=== PATIENT | male | born 1990 | race Caucasian/White ===

== ENCOUNTER 2019-08-31 04:02 | Emergency (ER) | payer MEDICARE, MEDICAID ==
[~2019-08-31] VITALS: Ht 177.8 cm; Wt 91.2 kg
[2019-08-31 04:38] LABS: BASO % 0.6 % (0.0-1.0); EOS % 0.8 % (0.0-3.0); HEMATOCRIT 41.9 % (42.0-52.0); HEMOGLOBIN 14.2 g/dl (13.5-17.5); LYMPH # 1.3 10^3/uL (1.5-5.0); LYMPH % 24.1 % (24.0-44.0); MEAN CORPUSCULAR HEMOGLOBIN 30.1 pg (27.0-33.0); MEAN CORPUSCULAR HGB CONC 33.9 g/dl (32.0-36.5); MONO # 0.8 10^3/uL (0.0-0.8); MONO % 14.9 % (0.0-5.0); NEUTROPHILS # 3.2 10^3/uL (1.5-8.5); NEUTROPHILS % 59.4 % (36.0-66.0); PLATELET COUNT, AUTOMATED 289 10^3/uL (150-450); RED BLOOD COUNT 4.71 10^6/uL (4.30-6.10); WHITE BLOOD COUNT 5.3 10^3/uL (4.0-10.0)
[2019-08-31] MEDS ORDERED: chlorproMAZINE INJ 50MG/2ML AMP (J3230) IM STA (04:39)
[2019-08-31] MEDS ORDERED: NS 1,000 ML IV ONE (04:45)
[2019-08-31 05:13] LABS: ACETAMINOPHEN LEVEL < 2.0 UG/ML (10.0-30.0); ALBUMIN 4.1 GM/DL (3.2-5.2); ALT/SGPT 29 U/L (12-78); AMPHETAMINES LEVEL URINE POSITIVE (NEGATIVE); BARBITURATES URINE NEGATIVE (NEGATIVE); BENZODIAZEPINES URINE NEGATIVE (NEGATIVE); BILIRUBIN,DIRECT 0.3 MG/DL (0.0-0.2); BILIRUBIN,TOTAL 0.9 MG/DL (0.2-1.0); BLOOD UREA NITROGEN 8 MG/DL (7-18); CANNABINOIDS URINE POSITIVE (NEGATIVE); CARBON DIOXIDE LEVEL 27 MEQ/L (21-32); CHLORIDE LEVEL 102 MEQ/L (98-107); COCAINE METABOLITE URINE POSITIVE (NEGATIVE); CPK CREATINE PHOSPHOKINASE 139 U/L (39-308); CREATININE FOR GFR 1.16 MG/DL (0.70-1.30); ETHYL ALCOHOL (ETHANOL) < 0.003 % (0.000-0.010); GLOMERULAR FILTRATION RATE > 60.0 (>60); GLUCOSE, FASTING 85 MG/DL (70-100); METHADONE URINE NEGATIVE (NEGATIVE); OPIATES URINE POSITIVE (NEGATIVE); PHENCYCLIDINE URINE NEGATIVE (NEGATIVE); POTASSIUM SERUM 3.6 MEQ/L (3.5-5.1); SALICYLATE LEVEL < 1.7 MG/DL (5.0-30.0); SODIUM LEVEL 140 MEQ/L (136-145); TOTAL PROTEIN 8.1 GM/DL (6.4-8.2)
--- NOTE | 2019-08-31 06:49 | REPVR ---
PROCEDURE INFORMATION: Exam: CT Head Without Contrast Exam date and time: 08/31/2019 6:02 AM Clinical history: 28 years old, male; Altered mental status/memory loss; Confusion or disorientation; Additional info: AMS TECHNIQUE: Imaging protocol: Computed tomography of the head without contrast. Radiation optimization: All CT scans at this facility use at least one of these dose optimization techniques: automated exposure control; mA and/or kV adjustment per patient size (includes targeted exams where dose is matched to clinical indication); or iterative reconstruction. COMPARISON: No relevant prior studies available. FINDINGS: Brain: The cortical/white matter interfaces are preserved throughout the brain. No parenchymal mass lesions are identified. There is no evidence of intracranial hemorrhage. Ventricles: The ventricular system is normal in size and configuration. Bones/joints: No acute fractures of the skull are identified. Sinuses: There is minimal mucoperiosteal thickening in the visualized paranasal sinuses. No fluid levels. Mastoid air cells: The visualized mastoid air cells are clear. Soft tissues: The soft tissues appear unremarkable. IMPRESSION: Normal appearance of the brain. Electronically signed by: Angelica Mcgraw On 08/31/2019 06:48:55 AM
[2019-08-31 11:55] VITALS: BP 128/71
--- NOTE | 2019-08-31 19:08 | ECGEPIP ---
[facility] - ED Test Date: 2019-08-31 Pat Name: KRISHAN GARDNER Department: Room: - Gender: Male Moveman: lyudmila : 1990 Requested By: YOLI ALBERTS Order Number: [id number] Reading MD: Darrel Sequeira Measurements Intervals [place] Rate: 112 P: 8 IA: 132 QRS: -5 QRSD: 106 T: 7 QT: 325 QTc: 444 Interpretive Statements SINUS TACHYCARDIA Comparison tracing not on file Electronically Signed on 08-31-2019 19:08:51 EDT by Darrel Sequeira
== END 2019-08-31 12:00 | disposition home or self-care (01) ==
LOC: M ED 04:02 → EDBD 04:02 → M ED 12:00
DX: F19.10 Other psychoactive substance abuse, uncomplicated (principal); R00.0 Tachycardia, unspecified
CPT/HCPCS: 36415; 70450; 80048; 80076; 80307; 82550; 84443; 85025; 93005; 93041; 94760; 96360; 96361; 96372; 99285; G0480; J3230

== ENCOUNTER 2019-09-15 15:42 | Emergency (ER) | payer MEDICARE, MEDICAID ==
[~2019-09-15] VITALS: Ht 162.6 cm; Wt 86.4 kg
[2019-09-15] MEDS ORDERED: NS 1,000 ML IV ONE ×2 (16:15→18:15)
[2019-09-15] MEDS ORDERED: ONDANSETRON 4MG/2ML VIAL (J2405) IV ONE (16:15)
[2019-09-15] MEDS ORDERED: NALOXONE INJ 2 MG/2 ML SYRINGE (J2310) As Ordered ONE (16:16)
[2019-09-15] MEDS ORDERED: NALOXONE INJ 0.4 MG/1 ML VIAL (J2310) IV STA (16:25)
[2019-09-15 17:00] LABS: BASO % 0.5 % (0.0-1.0); EOS % 0.1 % (0.0-3.0); HEMATOCRIT 37.7 % (42.0-52.0); HEMOGLOBIN 12.4 g/dl (13.5-17.5); LYMPH # 0.7 10^3/uL (1.5-5.0); LYMPH % 8.4 % (24.0-44.0); MEAN CORPUSCULAR HEMOGLOBIN 29.2 pg (27.0-33.0); MEAN CORPUSCULAR HGB CONC 32.9 g/dl (32.0-36.5); MEAN CORPUSCULAR VOLUME 88.9 fl (80.0-96.0); MONO # 0.7 10^3/uL (0.0-0.8); MONO % 8.5 % (0.0-5.0); NEUTROPHILS # 7.1 10^3/uL (1.5-8.5); PLATELET COUNT, AUTOMATED 337 10^3/uL (150-450); RED BLOOD COUNT 4.24 10^6/uL (4.30-6.10); WHITE BLOOD COUNT 8.7 10^3/uL (4.0-10.0)
[2019-09-15 17:44] LABS: ACETAMINOPHEN LEVEL < 2.0 UG/ML (10.0-30.0); ALBUMIN 3.8 GM/DL (3.2-5.2); ALT/SGPT 29 U/L (12-78); BILIRUBIN,DIRECT 0.1 MG/DL (0.0-0.2); BILIRUBIN,TOTAL 0.6 MG/DL (0.2-1.0); BLOOD UREA NITROGEN 6 MG/DL (7-18); CALCIUM LEVEL 8.8 MG/DL (8.5-10.1); CARBON DIOXIDE LEVEL 25 MEQ/L (21-32); CHLORIDE LEVEL 105 MEQ/L (98-107); CPK CREATINE PHOSPHOKINASE 246 U/L (39-308); CREATININE FOR GFR 0.66 MG/DL (0.70-1.30); ETHYL ALCOHOL (ETHANOL) < 0.003 % (0.000-0.010); GLOMERULAR FILTRATION RATE > 60.0 (>60); GLUCOSE, FASTING 121 MG/DL (70-100); POTASSIUM SERUM 3.7 MEQ/L (3.5-5.1); SALICYLATE LEVEL < 1.7 MG/DL (5.0-30.0); SODIUM LEVEL 138 MEQ/L (136-145); TOTAL PROTEIN 7.4 GM/DL (6.4-8.2)
--- NOTE | 2019-09-15 17:44 | REP ---
Clinical: Cough and shortness of breath . Comparison: None . Findings: The mediastinum and cardiac silhouette are stable and within normal limits for portable technique. The lung pal are clear without acute consolidation, effusion, or pneumothorax. Skeletal structures are intact. Impression: No acute cardiopulmonary process appreciated. Electronically Signed by Donny Greene MD 09/15/2019 05:35 P
[2019-09-15 18:16] LABS: INFLUENZA A AMPLIFICATION NEGATIVE (NEGATIVE); INFLUENZA B AMPLIFICATION NEGATIVE (NEGATIVE)
[2019-09-15 18:57] VITALS: BP 163/74
[2019-09-15 20:00] LABS: AMPHETAMINES LEVEL URINE POSITIVE (NEGATIVE); BARBITURATES URINE NEGATIVE (NEGATIVE); BENZODIAZEPINES URINE NEGATIVE (NEGATIVE); CANNABINOIDS URINE POSITIVE (NEGATIVE); COCAINE METABOLITE URINE NEGATIVE (NEGATIVE); METHADONE URINE NEGATIVE (NEGATIVE); OPIATES URINE NEGATIVE (NEGATIVE); PHENCYCLIDINE URINE NEGATIVE (NEGATIVE)
--- NOTE | 2019-09-15 20:42 | ECGEPIP ---
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
[2019-09-15] MEDS ORDERED: ACETAMINOPHEN 325 MG TAB PO ONE (21:45)
== END 2019-09-15 23:46 | disposition home or self-care (01) ==
LOC: M ED 15:42
DX: F19.10 Other psychoactive substance abuse, uncomplicated (principal); I49.9 Cardiac arrhythmia, unspecified; K21.9 Gastro-esophageal reflux disease without esophagitis; R51 Headache; Z98.84 Bariatric surgery status
CPT/HCPCS: 71045; 80048; 80076; 82550; 84443; 85025; 87502; 93005; 93041; 94760; 96374; 96375; 99285; G0480; J2310; J2405

== ENCOUNTER 2019-12-17 11:52 | Emergency (ER) | payer MEDICARE, MEDICAID ==
[~2019-12-17] VITALS: Ht 162.6 cm; Wt 86.7 kg
[2019-12-17] MEDS ORDERED: GABA-845 (12:41)
[2019-12-17] MEDS ORDERED: HYDR50TA70 (12:41)
[2019-12-17] MEDS ORDERED: PANT40TA3 (12:41)
[2019-12-17] MEDS ORDERED: BUPR75TA5 (12:41)
[2019-12-17] MEDS ORDERED: ESCI20TA (12:41)
[2019-12-17] MEDS ORDERED: D-101000 (12:41)
--- NOTE | 2019-12-17 13:38 | REP ---
PA and lateral chest: Comparison is the portable chest dated 09/15/2019. The lung pla are clear. The cardiac size is normal. The heidi, mediastinum, and skeletal structures are unremarkable. Impression: Negative PA and lateral chest. There is no interval change. Electronically Signed by Montana Acosta MD 12/17/2019 01:29 P
[2019-12-17 13:41] LABS: BASO % 0.9 % (0.0-1.0); EOS # 0.1 10^3/uL (0.0-0.5); EOS % 1.1 % (0.0-3.0); HEMATOCRIT 41.9 % (42.0-52.0); HEMOGLOBIN 13.4 g/dl (13.5-17.5); LYMPH # 1.1 10^3/uL (1.5-5.0); LYMPH % 24.4 % (24.0-44.0); MEAN CORPUSCULAR VOLUME 87.5 fl (80.0-96.0); MONO # 0.4 10^3/uL (0.0-0.8); MONO % 7.5 % (0.0-5.0); NEUTROPHILS # 3.1 10^3/uL (1.5-8.5); NEUTROPHILS % 65.9 % (36.0-66.0); PLATELET COUNT, AUTOMATED 415 10^3/uL (150-450); RED BLOOD COUNT 4.79 10^6/uL (4.30-6.10); WHITE BLOOD COUNT 4.6 10^3/uL (4.0-10.0)
[2019-12-17 14:01] LABS: ALBUMIN 3.9 GM/DL (3.2-5.2); BILIRUBIN,DIRECT 0.1 MG/DL (0.0-0.2); BILIRUBIN,TOTAL 0.4 MG/DL (0.2-1.0); TOTAL PROTEIN 7.2 GM/DL (6.4-8.2)
[2019-12-17 15:10] VITALS: BP 128/67
== END 2019-12-17 15:12 | disposition home or self-care (01) ==
LOC: M ED 11:52
DX: R25.8 Other abnormal involuntary movements (principal); F15.10 Other stimulant abuse, uncomplicated; R49.0 Dysphonia; J45.909 Unspecified asthma, uncomplicated; R51 Headache; Z98.84 Bariatric surgery status; Z79.899 Other long term (current) drug therapy

== ENCOUNTER 2020-01-14 04:13 | Emergency (ER) | payer MEDICARE, MEDICAID ==
[~2020-01-14] VITALS: Ht 162.6 cm; Wt 79.3 kg
[~2020-01-14 04:13] MED LIST: BUPR75TA5; D-101000; ESCI20TA; GABA-845; HYDR50TA70; PANT40TA3
[2020-01-14] MEDS ORDERED: SUCCINYLCHOLINE 100 MG/5 ML SYRINGE (J0330) ONE (04:14)
[2020-01-14] MEDS ORDERED: propofoL 200 MG/20 ML VIAL ONE (04:14)
[2020-01-14 04:33] LABS: HEMATOCRIT 39.4 % (42.0-52.0); HEMOGLOBIN 13.3 g/dl (13.5-17.5); MEAN CORPUSCULAR HEMOGLOBIN 28.1 pg (27.0-33.0); MEAN CORPUSCULAR HGB CONC 33.8 g/dl (32.0-36.5); MEAN CORPUSCULAR VOLUME 83.3 fl (80.0-96.0); PLATELET COUNT, AUTOMATED 301 10^3/uL (150-450); RED BLOOD COUNT 4.73 10^6/uL (4.30-6.10); WHITE BLOOD COUNT 7.9 10^3/uL (4.0-10.0)
[2020-01-14] MEDS ORDERED: NS 1,000 ML IV ONE (04:45)
[2020-01-14 05:13] LABS: ACETAMINOPHEN LEVEL < 2.0 UG/ML (10.0-30.0); ALBUMIN 3.7 GM/DL (3.2-5.2); ALT/SGPT 23 U/L (12-78); BILIRUBIN,DIRECT 0.2 MG/DL (0.0-0.2); BILIRUBIN,TOTAL 0.5 MG/DL (0.2-1.0); BLOOD UREA NITROGEN 8 MG/DL (7-18); CARBON DIOXIDE LEVEL 28 MEQ/L (21-32); CHLORIDE LEVEL 104 MEQ/L (98-107); CPK CREATINE PHOSPHOKINASE 360 U/L (39-308); CREATININE FOR GFR 0.99 MG/DL (0.70-1.30); ETHYL ALCOHOL (ETHANOL) < 0.003 % (0.000-0.010); GLOMERULAR FILTRATION RATE > 60.0 (>60); GLUCOSE, FASTING 86 MG/DL (70-100); POTASSIUM SERUM 3.5 MEQ/L (3.5-5.1); SALICYLATE LEVEL < 1.7 MG/DL (5.0-30.0); SODIUM LEVEL 140 MEQ/L (136-145); THYROID STIMULATING HORMONE 0.985 uIU/ML (0.358-3.740); TOTAL PROTEIN 7.2 GM/DL (6.4-8.2)
[2020-01-14 05:15] LABS: AMPHETAMINES LEVEL URINE NEGATIVE (NEGATIVE); BARBITURATES URINE NEGATIVE (NEGATIVE); BENZODIAZEPINES URINE NEGATIVE (NEGATIVE); CANNABINOIDS URINE NEGATIVE (NEGATIVE); COCAINE METABOLITE URINE NEGATIVE (NEGATIVE); METHADONE URINE NEGATIVE (NEGATIVE); OPIATES URINE NEGATIVE (NEGATIVE); PHENCYCLIDINE URINE NEGATIVE (NEGATIVE)
--- NOTE | 2020-01-14 08:15 | ECGEPIP ---
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
[2020-01-14] MEDS ORDERED: OLANZapine ORAL DISINTEGRATING TAB 5MG PO ONE (10:45)
[2020-01-14 13:05] VITALS: BP 127/63
== END 2020-01-14 13:23 | disposition home or self-care (01) ==
LOC: M ED 04:13
DX: F15.120 Other stimulant abuse with intoxication, uncomplicated (principal); F16.10 Hallucinogen abuse, uncomplicated; R45.851 Suicidal ideations; Z81.8 Family history of other mental and behavioral disorders; F81.9 Developmental disorder of scholastic skills, unspecified; N50.819 Testicular pain, unspecified
CPT/HCPCS: 80048; 80076; 80307; 82550; 84443; 85027; 93005; 96360; 99284; G0480; J0330

== ENCOUNTER 2020-05-23 12:37 | Emergency (ER) | payer MEDICARE, MEDICAID ==
[~2020-05-23] VITALS: Ht 160 cm; Wt 68.2 kg
[~2020-05-23 12:37] MED LIST changes: -D-101000; +D-101000 PO; -ESCI20TA; +ESCI20TA PO; -GABA-845; +GABA-845 PO; -HYDR50TA70; +HYDR50TA70 PO; +PANT40TA29 PO; -PANT40TA3
--- NOTE | 2020-05-23 13:14 | REP ---
Clinical: Trauma. Technique: AP, lateral, bilateral oblique views of the right and left wrist. Findings: Left wrist appears intact without acute fracture or dislocation. No subcutaneous emphysema. No foreign body. Right wrist appears intact without acute fracture or dislocation. No subcutaneous emphysema. No foreign body. Impression: No acute fracture or dislocation. Electronically Signed by Donny Greene MD 05/23/2020 01:05 P
--- NOTE | 2020-05-23 13:15 | REP ---
Clinical: Trauma. Technique: AP, lateral, bilateral oblique views of the right and left ankle. Findings: Right ankle intact without acute fracture or dislocation. Joint spaces and ankle mortise are normal. No subcutaneous emphysema or foreign body. Left ankle intact without acute fracture or dislocation. Joint spaces and ankle mortise are normal. No subcutaneous emphysema or foreign body. Impression: No acute fracture or dislocation. Electronically Signed by Donny Greene MD 05/23/2020 01:06 P
--- NOTE | 2020-05-23 13:16 | REP ---
Clinical: Trauma. Technique: Internal rotation, external rotation, and Y view right shoulder . Findings: No acute fracture or dislocation. The acromioclavicular and glenohumeral joints are intact. No periarticular calcifications or degenerative changes are appreciated. Sub acromial space is normal. Surrounding soft tissues are unremarkable. Impression: Normal right shoulder radiographs. Electronically Signed by Donny Greene MD 05/23/2020 01:07 P
[2020-05-23] MEDS ORDERED: CLON0.5T2 PO (13:28)
[2020-05-23 13:34] LABS: HEMATOCRIT 41.1 % (42.0-52.0); HEMOGLOBIN 13.3 g/dl (13.5-17.5); MEAN CORPUSCULAR HEMOGLOBIN 27.8 pg (27.0-33.0); MEAN CORPUSCULAR HGB CONC 32.4 g/dl (32.0-36.5); MEAN CORPUSCULAR VOLUME 85.8 fl (80.0-96.0); PLATELET COUNT, AUTOMATED 341 10^3/uL (150-450); RED BLOOD COUNT 4.79 10^6/uL (4.30-6.10); WHITE BLOOD COUNT 6.3 10^3/uL (4.0-10.0)
[2020-05-23 13:54] LABS: AMPHETAMINES LEVEL URINE NEGATIVE (NEGATIVE); BARBITURATES URINE NEGATIVE (NEGATIVE); BENZODIAZEPINES URINE NEGATIVE (NEGATIVE); CANNABINOIDS URINE NEGATIVE (NEGATIVE); COCAINE METABOLITE URINE NEGATIVE (NEGATIVE); METHADONE URINE NEGATIVE (NEGATIVE); OPIATES URINE NEGATIVE (NEGATIVE); PHENCYCLIDINE URINE NEGATIVE (NEGATIVE)
[2020-05-23 14:02] LABS: ACETAMINOPHEN LEVEL < 2.0 UG/ML (10.0-30.0); ALBUMIN 3.8 GM/DL (3.2-5.2); ALT/SGPT 33 U/L (12-78); BILIRUBIN,DIRECT 0.3 MG/DL (0.0-0.2); BILIRUBIN,TOTAL 0.7 MG/DL (0.2-1.0); BLOOD UREA NITROGEN 7 MG/DL (7-18); CALCIUM LEVEL 8.5 MG/DL (8.5-10.1); CARBON DIOXIDE LEVEL 27 MEQ/L (21-32); CHLORIDE LEVEL 105 MEQ/L (98-107); CREATININE FOR GFR 0.99 MG/DL (0.70-1.30); ETHYL ALCOHOL (ETHANOL) < 0.003 % (0.000-0.010); GLOMERULAR FILTRATION RATE > 60.0 (>60); GLUCOSE, FASTING 131 MG/DL (70-100); POTASSIUM SERUM 3.5 MEQ/L (3.5-5.1); SALICYLATE LEVEL < 1.7 MG/DL (5.0-30.0); SODIUM LEVEL 140 MEQ/L (136-145); TOTAL PROTEIN 7.4 GM/DL (6.4-8.2)
[2020-05-23 14:58] VITALS: BP 131/65
== END 2020-05-23 15:01 | disposition home or self-care (01) ==
LOC: M ED 12:37
DX: F15.10 Other stimulant abuse, uncomplicated (principal); Z79.899 Other long term (current) drug therapy
CPT/HCPCS: 36415; 73030; 73110; 73610; 80048; 80076; 80307; 84443; 85027; 99284; G0480

== ENCOUNTER 2020-05-27 10:35 | Inpatient (IN) | payer MEDICARE, MEDICAID ==
[~2020-05-27] VITALS: Ht 162.6 cm; Wt 80.7 kg
[~2020-05-27 10:35] MED LIST changes: +CLON0.5T2 PO; -PANT40TA29 PO; +PANT40TA3 PO
[2020-05-27 11:44] LABS: HEMATOCRIT 46.8 % (42.0-52.0); HEMOGLOBIN 14.7 g/dl (13.5-17.5); MEAN CORPUSCULAR HEMOGLOBIN 27.8 pg (27.0-33.0); MEAN CORPUSCULAR HGB CONC 31.4 g/dl (32.0-36.5); MEAN CORPUSCULAR VOLUME 88.5 fl (80.0-96.0); PLATELET COUNT, AUTOMATED 362 10^3/uL (150-450); RED BLOOD COUNT 5.29 10^6/uL (4.30-6.10); WHITE BLOOD COUNT 4.3 10^3/uL (4.0-10.0)
[2020-05-27 12:24] LABS: ACETAMINOPHEN LEVEL < 2.0 UG/ML (10.0-30.0); ALBUMIN 3.7 GM/DL (3.2-5.2); ALT/SGPT 27 U/L (12-78); BILIRUBIN,DIRECT < 0.1 MG/DL (0.0-0.2); BILIRUBIN,TOTAL 0.2 MG/DL (0.2-1.0); BLOOD UREA NITROGEN 10 MG/DL (7-18); CALCIUM LEVEL 8.9 MG/DL (8.5-10.1); CARBON DIOXIDE LEVEL 31 MEQ/L (21-32); CHLORIDE LEVEL 105 MEQ/L (98-107); ETHYL ALCOHOL (ETHANOL) < 0.003 % (0.000-0.010); GLOMERULAR FILTRATION RATE > 60.0 (>60); GLUCOSE, FASTING 77 MG/DL (70-100); POTASSIUM SERUM 4.6 MEQ/L (3.5-5.1); SALICYLATE LEVEL < 1.7 MG/DL (5.0-30.0); SODIUM LEVEL 140 MEQ/L (136-145); THYROID STIMULATING HORMONE 0.666 uIU/ML (0.358-3.740); TOTAL PROTEIN 7.5 GM/DL (6.4-8.2)
[2020-05-27 13:37] LABS: AMPHETAMINES LEVEL URINE NEGATIVE (NEGATIVE); BARBITURATES URINE NEGATIVE (NEGATIVE); BENZODIAZEPINES URINE NEGATIVE (NEGATIVE); CANNABINOIDS URINE NEGATIVE (NEGATIVE); COCAINE METABOLITE URINE NEGATIVE (NEGATIVE); METHADONE URINE NEGATIVE (NEGATIVE); OPIATES URINE NEGATIVE (NEGATIVE); PHENCYCLIDINE URINE NEGATIVE (NEGATIVE)
[2020-05-27] MEDS ORDERED: MOM 30ML SUSPENSION UDC PO PRN (14:00)
[2020-05-27] MEDS ORDERED: IBUPROFEN 400 MG TAB PO PRN (14:00)
[2020-05-27] MEDS ORDERED: BUPR150T3 PO (14:43)
[2020-05-27 15:45] VITALS: BP 98/54
[2020-05-28 07:20] VITALS: BP 124/58
[2020-05-28] MEDS: ACETAMINOPHEN TAB 650MG DOSE (2X325MG) PO PRN ×2 (10:36→17:33)
[2020-05-28 16:44] VITALS: BP 134/70
[2020-05-28] MEDS: buPROPion **XL** TABLET 150MG (WELLBUTRIN XL) PO SCH (17:34)
[2020-05-28] MEDS: OLANZapine 5 MG TAB PO PRN (17:37)
[2020-05-29 06:17] VITALS: BP 125/58
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
[2020-05-29] MEDS: buPROPion **XL** TABLET 150MG (WELLBUTRIN XL) PO SCH (09:17)
--- NOTE | 2020-05-29 11:15 | MHHPEPDOC ---
[facility] History & Physical History and Physical DATE OF ADMISSION: May 27, 2020 at 14:00 LEGAL STATUS AT ADMISSION: . CHIEF COMPLAINT: . HISTORY OF PRESENT ILLNESS: Patient is a 29-year-old male, who PSYCHIATRIC REVIEW OF SYSTEMS: Affective: . Anxiety: . Trauma: . Psychosis: . Personality: . PAST PSYCHIATRIC HISTORY: Prior Psychiatric Disorder: . Outpatient Treatment: . Suicidal/Self injurious: [Denies]. Psychotropic Medication History: . ALLERGIES: Please see below. FAMILY PSYCHIATRIC HISTORY: [Denies]. SOCIAL HISTORY: Early Relations/development: . Sibling order: . Paternal relationships: . Education: . Occupational: . Legal: . Marital: . Economic: . Supports: . Abuse/trauma: . SUBSTANCE ABUSE HISTORY: . PAST MEDICAL/SURGICAL HISTORY: [None]. VITAL SIGNS: Please see below. MENTAL STATUS EXAMINATION: General appearance: Patient is a -year old male, who is . Speech: . Thought processes: . Thought content: . Abstract reasoning and computation: . Description of associations: . Description of abnormal or psychotic thoughts: . Judgment: . Insight: . Orientation: . Recent and remote memory: . Attention span and concentration: . Fund of knowledge: . Mood: "." Affect: . DIAGNOSES: 1. . 2. . 3. . ASSESSMENT: PROBLEM LIST: 1. . 2. . 3. . INITIAL TREATMENT PLAN: 1. Patient was admitted on a . 2. Complete history was obtained. 3. With patients permission, family will be contacted and database will be expanded. 4. Patients medication regimen will be reviewed and changed accordingly. 5. Patient will be provided with protected environment. 6. Patient will be treated with individual, group, and milieu therapies. 7. Patient will receive supportive psych-education. 8. Discharge planning will commence immediately. 9. Outpatient follow-up treatment will be strongly recommended. 10. The initial treatment plan will focus initially on: * Depression. * Risk for suicide. * Substance abuse. ESTIMATED LENGTH OF STAY: - DAYS. TIME SPENT COUNSELING AND COORDINATING INITIAL CARE: minutes. Vital Signs Vital Signs Date Time Temp Pulse Resp B/P (MAP) Pulse Ox O2 Delivery O2 Flow Rate FiO2 05/29/20 08:01 Room Air 05/29/20 06:17 97.0 59 12 125/58 (80) 05/28/20 07:20 98 Medications Scheduled Bupropion Hcl (Bupropion Xl) 150 Mg Tab.er.24h, 150 MG PO DAILY, (Reported) Cholecalciferol (Vitamin D3) (Vitamin D3) 25 Mcg Capsule, 25 MCG PO DAILY, (Reported) Clonazepam (Clonazepam) 0.5 Mg Tablet, 0.5 MG PO BID, (Reported) Escitalopram Oxalate (Escitalopram Oxalate) 20 Mg Tablet, 20 MG PO DAILY, (Reported) Gabapentin (Gabapentin) 400 Mg Capsule, 400 MG PO TID, (Reported) Pantoprazole Sodium (Pantoprazole Sodium) 40 Mg Tablet.dr, 40 MG PO BID, (Reported) Scheduled PRN Hydroxyzine HCl (Hydroxyzine HCl) 50 Mg Tablet, 50 MG PO Q4H PRN for ANXIETY/AGITATION, (Reported) Allergies Coded Allergies: No Known Allergies (Unverified , 08/31/19) WILMER ESTRADA DO May 29, 2020 11:15
--- NOTE | 2020-05-29 11:16 | MHIPNPDOC ---
[facility] Progress Note Progress Note DATE OF SERVICE: 05/29/20 HPI: Martin presents today for a follow-up visit. Martin mentions he used to have thoughts of harming himself as he used to take Ana contaminated with bath salts and methamphetamine, which blocked his emotions and feelings while he was on it, and then he felt the rebound of its effects after he stopped taking it. Martin states he is in an addiction treatment and is thinking about going to rehab. He also mentions he doesnt like being locked up either. MEDICATIONS: He mentions he has taken Wellbutrin for a while. Objective Appearance: Fair hygiene. Behavior: engaged Mood: No evidence of psychotic thought process. Denies any suicidal or homicidal ideation. Does appear to be making some progress. Speech: Normal rate. Normal volume. Thought Form: Linear and goal directed. Insight: Poor to fair. Assessment F33.9 Major depressive disorder, recurrent, unspecified F15.20 Other stimulant dependence, uncomplicated F16.20 Hallucinogen dependence, uncomplicated Plan Increase Wellbutrin to 300 mg Discussed with patient risks of Wellbutrin use and substance use as well as residential programs and other strategies for continuing sober as likely a major problem. Treatment plan: His current treatment priorities are 1. Risk for suicide and 2. Substances. Vital Signs Vital Signs Date Time Temp Pulse Resp B/P (MAP) Pulse Ox O2 Delivery O2 Flow Rate FiO2 05/29/20 08:01 Room Air 05/29/20 06:17 97.0 59 12 125/58 (80) 05/28/20 07:20 98 Current Medications Current Medications Medications (Trade) Dose Ordered Sig/Joan Route PRN Reason Start Time Stop Time Status Last Admin Dose Admin Acetaminophen (Tylenol Tab) 650 mg Q6HP PRN PO HEADACHE or DISCOMFORT 05/27/20 14:00 05/28/20 17:33 Bupropion HCl (Wellbutrin Xl) 150 mg DAILY PO 05/28/20 09:00 05/29/20 09:17 Home Med (Med Rec Complete!) ASDIRECTED XX 05/27/20 14:45 05/27/20 14:55 DC Ibuprofen (Advil) 400 mg Q6HP PRN PO PAIN 05/27/20 14:00 Magnesium Hydroxide (Milk Of Magnesia) 30 ml DAILYPRN PRN PO CONSTIPATION 05/27/20 14:00 Olanzapine (ZyPREXA) 5 mg Q4HP PRN PO AGITATION 05/27/20 14:00 05/28/20 17:37 Allergies Coded Allergies: No Known Allergies (Unverified , 08/31/19) WILMER ESTRADA DO May 29, 2020 11:16
[2020-05-29 16:34] VITALS: BP 121/58
[2020-05-30 06:29] VITALS: BP 128/60
[2020-05-30] MEDS ORDERED: buPROPion **XL** TABLET 150MG (WELLBUTRIN XL) PO SCH (09:00)
--- NOTE | 2020-05-30 12:42 | MHIPNPDOC ---
[facility] Progress Note Progress Note DATE OF SERVICE: 05/30/20 HISTORY: . VITAL SIGNS: See below. NEW TEST RESULTS: . CURRENT MEDICATIONS: See below. MENTAL STATUS EXAMINATION: Patient is a -year old male, who is . Speech: Is . Language skills are . Thought processes including: . Thought content: . Abstract reasoning, and computation: . Description of associ ations: . Description of abnormal or psychotic thoughts: . Judgment: . Insight: [very limited, good, fair. poor]. Orientation: . Recent and remote memory: . Attention span and concentration: . Language: . Fund of knowledge: . Mood: . Affect: . DIAGNOSES: 1. . 2. . 3. . ASSESSMENT: MANAGEMENT PLAN: . TIME SPENT: minutes. Vital Signs Vital Signs Date Time Temp Pulse Resp B/P (MAP) Pulse Ox O2 Delivery O2 Flow Rate FiO2 05/30/20 07:51 Room Air 05/30/20 06:29 96.5 63 12 128/60 (82) 05/28/20 07:20 98 Current Medications Current Medications Medications (Trade) Dose Ordered Sig/Joan Route PRN Reason Start Time Stop Time Status Last Admin Dose Admin Acetaminophen (Tylenol Tab) 650 mg Q6HP PRN PO HEADACHE or DISCOMFORT 05/27/20 14:00 05/28/20 17:33 Bupropion HCl (Wellbutrin Xl) 150 mg DAILY PO 05/28/20 09:00 05/29/20 11:26 DC 05/29/20 09:17 Bupropion HCl (Wellbutrin Xl) 300 mg DAILY PO 05/30/20 09:00 05/30/20 09:23 Home Med (Med Rec Complete!) ASDIRECTED XX 05/27/20 14:45 05/27/20 14:55 DC Ibuprofen (Advil) 400 mg Q6HP PRN PO PAIN 05/27/20 14:00 Magnesium Hydroxide (Milk Of Magnesia) 30 ml DAILYPRN PRN PO CONSTIPATION 05/27/20 14:00 Olanzapine (ZyPREXA) 5 mg Q4HP PRN PO AGITATION 05/27/20 14:00 05/28/20 17:37 Allergies Coded Allergies: No Known Allergies (Unverified , 08/31/19) WILMER ESTRADA DO May 30, 2020 12:42
--- NOTE | 2020-05-30 14:51 | MHDSPDOC ---
[facility] Discharge Summary Discharge Summary DATE OF ADMISSION: May 27, 2020 at 14:00 DATE OF DISCHARGE: May 30, 2020 at 16:50 DISCHARGE DIAGNOSES: Unspecified depressive disorder poly substance use disorder REASON FOR ADMISSION: 29-year-old man admitted for depression after recent relapse on substances CONSULTANTS INVOLVED:[ None (basic hospitalist screening)] TREATMENT AND PROGRESS ON THE UNIT : Medication changes: start on Wellbutrin 150 mg extended release increase to 300 mg with positive effects depression, resolving precipitously Behavior on unit: friendly and amenable Treatment attendance: attended more as improved Notable issues on presentation: none State on discharge: [improved] DISCHARGE ASSESSMENT: The patient a 29 year old man, with likely substance related depression, presented to [facility], where they treated with appropriate agent and supportive treatment. Legal status considerations: The patient at the time of discharge did not meet criteria for involuntary admission/extension due to having a [normal] mental status exam, [fair] insight into the situation, They are engaged in the discharge process, as well as being friendly and amenable in behavioral control and havent been engaging in any observed concerning behavior or ideation recently. They decline voluntary extension/admission at this time and must be discharged in good rebekah, as Im unable to make a case for holding the patient against their will. They may have historical risk factors of admissions and other interactions with psychiatry however, those are not modifiable from a clinical perspective. The patient will need to be discharged in good rebekah. MENTAL STATUS EXAMINATION ON DISCHARGE: [General: Well dressed with good hygiene Speech: Spontaneous and fluid Thought processes: Linear and logical Thought content: Future orientated Abstract reasoning, and computation: Intact Description of associations: Intact Description of abnormal or psychotic thoughts:Denies any suicidal or homicidal ideation. Denies any auditory or visual hallucinations. Does not appear to be responding to internal stimuli. Does not appear to be endorsing any bizarre or paranoid ideation. Judgment: fair Insight: fair Orientation: Alert and orientated 3 Recent and remote memory: Intact Attention span and concentration: Intact Fund of knowledge: Adequate Mood: "okay" Affect: Euthymic with a full range] PLAN/FOLLOWUP ARRANGEMENTS: Follow up appointments made (PCP and MH in 5 days of D/C date) and safety plan completed. Safety Planning aspects completed prior to discharge [Medication supplies limited to 7 days with 4 refills to prevent accumulation to OD] [Family contact completed, educated on safe practices, instructed on removal and mitigation of dangerous means] [RN reviewed crisis hotline information and other aspects to empower patient to access care in interim before next appointment.] The amount of time spent in the coordination of care for this patient was approximately 30 minutes. Vital Signs/I&Os Vital Signs Date Time Temp Pulse Resp B/P (MAP) Pulse Ox O2 Delivery O2 Flow Rate FiO2 05/30/20 07:51 Room Air 05/30/20 06:29 96.5 63 12 128/60 (82) 05/28/20 07:20 98 Medications Scheduled Bupropion HCl (Wellbutrin Xl) 300 Mg Tab.er.24h, 1 TAB PO QAM for mood for 7 Days, #14 Bupropion Hcl (Bupropion Xl) 150 Mg Tab.er.24h, 150 MG PO DAILY, (Reported) Cholecalciferol (Vitamin D3) (Vitamin D3) 25 Mcg Capsule, 25 MCG PO DAILY, (Reported) Gabapentin (Gabapentin) 400 Mg Capsule, 400 MG PO TID, (Reported) Pantoprazole Sodium (Pantoprazole Sodium) 40 Mg Tablet.dr, 40 MG PO BID, (Reported) Scheduled PRN Hydroxyzine HCl (Hydroxyzine HCl) 50 Mg Tablet, 50 MG PO Q4H PRN for ANXIETY/AGITATION, (Reported) Allergies Coded Allergies: No Known Allergies (Unverified , 08/31/19) WILMER ESTRADA DO May 30, 2020 14:51
[2020-05-30] MEDS ORDERED: WELLTAB40 PO (14:52)
[2020-05-30] MEDS: ACETAMINOPHEN TAB 650MG DOSE (2X325MG) PO PRN (15:28)
[2020-05-30] MEDS: OLANZapine 5 MG TAB PO PRN (15:29)
[2020-05-30 16:37] VITALS: BP 135/90
== END 2020-05-30 16:50 | disposition home or self-care (01) | DRG 885 ==
LOC: M ED 10:35 → M ED INP 14:00 → M PSY 15:54
PROVIDERS: ADMIT Psychiatry & Neurology Addiction Medicine; ATTEND Psychiatry & Neurology Addiction Medicine
DX: F33.9 Major depressive disorder, recurrent, unspecified (principal); F15.20 Other stimulant dependence, uncomplicated; F16.20 Hallucinogen dependence, uncomplicated; F41.1 Generalized anxiety disorder; J45.909 Unspecified asthma, uncomplicated; F81.9 Developmental disorder of scholastic skills, unspecified; Z98.84 Bariatric surgery status; Z90.49 Acquired absence of other specified parts of digestive tract; Z79.899 Other long term (current) drug therapy; K21.9 Gastro-esophageal reflux disease without esophagitis

== ENCOUNTER 2021-01-30 13:14 | Emergency (ER) | payer MEDICARE, MEDICAID ==
[~2021-01-30] VITALS: Ht 162.6 cm; Wt 74.5 kg
[~2021-01-30 13:14] MED LIST changes: +BUPR150T12 PO; -ESCI20TA PO; +ESCI20TA16 PO; +PANT40TA29 PO; -PANT40TA3 PO; +WELLTAB40 PO
[2021-01-30] MEDS ORDERED: NS 1,000 ML IV ONE (13:25)
[2021-01-30 13:55] LABS: BASO % 0.4 % (0.0-1.0); EOS % 0.1 % (0.0-3.0); HEMATOCRIT 37.3 % (42.0-52.0); HEMOGLOBIN 12.1 g/dl (13.5-17.5); LYMPH # 0.9 10^3/uL (1.5-5.0); LYMPH % 13.2 % (24.0-44.0); MEAN CORPUSCULAR HEMOGLOBIN 27.7 pg (27.0-33.0); MEAN CORPUSCULAR HGB CONC 32.4 g/dl (32.0-36.5); MEAN CORPUSCULAR VOLUME 85.4 fl (80.0-96.0); MONO # 0.5 10^3/uL (0.0-0.8); MONO % 7.3 % (2.0-8.0); NEUTROPHILS # 5.4 10^3/uL (1.5-8.5); NEUTROPHILS % 78.9 % (36.0-66.0); PLATELET COUNT, AUTOMATED 303 10^3/uL (150-450); RED BLOOD COUNT 4.37 10^6/uL (4.30-6.10); WHITE BLOOD COUNT 6.9 10^3/uL (4.0-10.0)
[2021-01-30 16:16] LABS: ACETAMINOPHEN LEVEL < 2.0 UG/ML (10.0-30.0); ALBUMIN 3.6 GM/DL (3.2-5.2); ALT/SGPT 41 U/L (12-78); BILIRUBIN,DIRECT 0.2 MG/DL (0.0-0.2); BILIRUBIN,TOTAL 0.5 MG/DL (0.2-1.0); BLOOD UREA NITROGEN 7 MG/DL (7-18); CALCIUM LEVEL 8.1 MG/DL (8.5-10.1); CARBON DIOXIDE LEVEL 28 MEQ/L (21-32); CHLORIDE LEVEL 109 MEQ/L (98-107); CPK CREATINE PHOSPHOKINASE 191 U/L (39-308); CREATININE FOR GFR 0.86 MG/DL (0.70-1.30); ETHYL ALCOHOL (ETHANOL) < 0.003 % (0.000-0.010); GLOMERULAR FILTRATION RATE > 60.0 (>60); GLUCOSE, FASTING 73 MG/DL (70-100); POTASSIUM SERUM 3.8 MEQ/L (3.5-5.1); SALICYLATE LEVEL < 1.7 MG/DL (5.0-30.0); SODIUM LEVEL 142 MEQ/L (136-145); TOTAL PROTEIN 7.1 GM/DL (6.4-8.2)
[2021-01-30 17:45] VITALS: BP 111/64
[2021-01-30 18:07] LABS: AMPHETAMINES LEVEL URINE POSITIVE (NEGATIVE); BARBITURATES URINE NEGATIVE (NEGATIVE); BENZODIAZEPINES URINE NEGATIVE (NEGATIVE); CANNABINOIDS URINE NEGATIVE (NEGATIVE); COCAINE METABOLITE URINE NEGATIVE (NEGATIVE); METHADONE URINE NEGATIVE (NEGATIVE); OPIATES URINE POSITIVE (NEGATIVE); PHENCYCLIDINE URINE NEGATIVE (NEGATIVE)
--- NOTE | 2021-01-30 19:19 | ECGEPIP ---
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
== END 2021-01-30 18:40 | disposition home or self-care (01) ==
LOC: M ED 13:14
DX: F19.10 Other psychoactive substance abuse, uncomplicated (principal); Z98.84 Bariatric surgery status; Z79.899 Other long term (current) drug therapy

== ENCOUNTER 2021-03-14 18:13 | Emergency (ER) | payer MEDICARE, MEDICAID ==
[~2021-03-14] VITALS: Ht 162.6 cm; Wt 97.8 kg
[2021-03-14] MEDS ORDERED: NS 1,000 ML IV ONE (18:40)
[2021-03-14] MEDS ORDERED: diphenhydrAMINE 50MG/ML VIAL (J1200) IM ONE (18:40)
[2021-03-14] MEDS ORDERED: LORazepam 2 MG/ML VIAL IM ONE (18:40)
[2021-03-14] MEDS ORDERED: diphenhydrAMINE 50MG/ML VIAL (J1200) As Ordered ONE (18:41)
[2021-03-14] MEDS ORDERED: HALOPERIDOL 5MG/ML VIAL (J1630 PER 1) As Ordered ONE (18:41)
[2021-03-14] MEDS ORDERED: LORazepam 2 MG/ML VIAL As Ordered ONE (18:42)
[2021-03-14] MEDS ORDERED: HALOPERIDOL 5MG/ML VIAL (J1630 PER 1) IM ONE (19:00)
[2021-03-14 19:22] LABS: HEMATOCRIT 39.1 % (42.0-52.0); HEMOGLOBIN 12.6 g/dl (13.5-17.5); MEAN CORPUSCULAR HEMOGLOBIN 27.8 pg (27.0-33.0); MEAN CORPUSCULAR HGB CONC 32.2 g/dl (32.0-36.5); MEAN CORPUSCULAR VOLUME 86.1 fl (80.0-96.0); PLATELET COUNT, AUTOMATED 376 10^3/uL (150-450); RED BLOOD COUNT 4.54 10^6/uL (4.30-6.10); WHITE BLOOD COUNT 6.5 10^3/uL (4.0-10.0)
[2021-03-14 19:51] LABS: ACETAMINOPHEN LEVEL < 2.0 UG/ML (10.0-30.0); ALT/SGPT 368 U/L (12-78); BILIRUBIN,DIRECT < 0.1 MG/DL (0.0-0.2); BILIRUBIN,TOTAL 0.7 MG/DL (0.2-1.0); BLOOD UREA NITROGEN 16 MG/DL (7-18); CALCIUM LEVEL 9.4 MG/DL (8.5-10.1); CARBON DIOXIDE LEVEL 30 MEQ/L (21-32); CHLORIDE LEVEL 102 MEQ/L (98-107); CREATININE FOR GFR 0.78 MG/DL (0.70-1.30); ETHYL ALCOHOL (ETHANOL) < 0.003 % (0.000-0.010); GLOMERULAR FILTRATION RATE > 60.0 (>60); GLUCOSE, FASTING 109 MG/DL (70-100); POTASSIUM SERUM 3.9 MEQ/L (3.5-5.1); SALICYLATE LEVEL < 1.7 MG/DL (5.0-30.0); SODIUM LEVEL 139 MEQ/L (136-145); TOTAL PROTEIN 7.5 GM/DL (6.4-8.2)
--- NOTE | 2021-03-14 20:40 | ECGEPIP ---
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
[2021-03-14 21:29] LABS: AMPHETAMINES LEVEL URINE NEGATIVE (NEGATIVE); BARBITURATES URINE NEGATIVE (NEGATIVE); BENZODIAZEPINES URINE NEGATIVE (NEGATIVE); CANNABINOIDS URINE NEGATIVE (NEGATIVE); COCAINE METABOLITE URINE NEGATIVE (NEGATIVE); METHADONE URINE NEGATIVE (NEGATIVE); OPIATES URINE NEGATIVE (NEGATIVE); PHENCYCLIDINE URINE NEGATIVE (NEGATIVE)
[2021-03-15 00:51] VITALS: BP 131/61
== END 2021-03-15 00:54 | disposition home or self-care (01) ==
LOC: M ED 18:13
DX: Z04.6 Encounter for general psychiatric examination, requested by authority (principal); R00.0 Tachycardia, unspecified; F19.10 Other psychoactive substance abuse, uncomplicated; K21.9 Gastro-esophageal reflux disease without esophagitis; B00.9 Herpesviral infection, unspecified; Z98.84 Bariatric surgery status; Z79.899 Other long term (current) drug therapy
CPT/HCPCS: 80048; 80076; 80143; 80307; 82077; 84443; 85027; 93005; 93041; 94760; 96360; 96361; 96372; 99285; J1200; J1630; J2060

== ENCOUNTER 2021-06-14 10:32 | Emergency (ER) | payer OTHER, MEDICARE, MEDICAID ==
[~2021-06-14] VITALS: Ht 162.6 cm; Wt 79.5 kg
[~2021-06-14 10:32] MED LIST changes: +GABA-283 PO; -GABA-845 PO
[2021-06-14] MEDS ORDERED: CLON0.5T2 PO (10:58)
--- NOTE | 2021-06-14 11:31 | REP ---
INDICATION: pain, swelling, trauma. COMPARISON: Comparison left ankle radiographs are from May 23, 2020.. TECHNIQUE: Four views of the left ankle are provided. FINDINGS: There is a severely comminuted fracture of the body of the calcaneus with flattening of Boehler's angle and associated soft tissue swelling. No talar or other tarsal fracture is appreciated. Ankle mortise appears intact. No tibial or fibular fracture is seen. IMPRESSION: Severely comminuted fracture of the calcaneus on the left. Consider foot and calcaneal radiographs. <Electronically signed by Randolph Knapp > 06/14/21 112
--- NOTE | 2021-06-14 12:20 | REP ---
INDICATION: fell out of truck, posterior scalp lac, +LOC, 2 days ago. COMPARISON: Comparison head CT study is from August 31, 2019.. TECHNIQUE: Helical scanning is acquired. 5 mm axial images were reformatted. Coronal MPR images were generated. FINDINGS: Bone window settings demonstrate an intact bony calvarium. There is no evidence of skull fracture or incidental bony calvarial lesion. The visualized paranasal sinuses appear clear. No intraorbital abnormality is seen. On soft tissue window setting images; the lateral, third, and fourth ventricles are normal in size and position. Osuna-white differentiation pattern is normal above and below the tentorium. There are is no evidence of intracranial hemorrhage. No mass, edema, infarction, or midline shift is seen. No extra-axial fluid collection is appreciated. IMPRESSION: Negative noncontrast head CT. <Electronically signed by Randolph Knapp > 06/14/21 [id number]
--- NOTE | 2021-06-14 12:21 | REP ---
INDICATION: fell out of truck, posterior scalp lac, +LOC, 2 days ago. COMPARISON: None. TECHNIQUE: Helical scanning is acquired and overlapping 2 mm high resolution axial images were generated and reviewed at bone and soft tissue window settings. Coronal and sagittal multiplanar re-formations images are generated. FINDINGS: There is no evidence of cervical spine element fracture. No skull base fracture is seen. Cervical vertebral body heights are preserved. Alignment is normal. Facet joints are normally aligned bilaterally at each cervical level on multiplanar re-formations images. There is no evidence of intraspinal or paraspinal hematoma. No extra vertebral abnormality is seen. IMPRESSION: Negative CT study of the cervical spine without contrast. No fracture seen. <Electronically signed by Randolph Knapp > 06/14/21 [id number]
--- NOTE | 2021-06-14 12:25 | REP ---
INDICATION: fell out of truck, severe pain, +calcaneal fx. COMPARISON: None. TECHNIQUE: Helical scanning is acquired and 4 mm axial images re-formatted. Coronal and sagittal MPR images are provided. FINDINGS: Lumbar vertebral body heights are preserved. Alignment is normal. There is no evidence of spondylolysis or spondylolisthesis. No evidence of fracture or collapse is seen. Posterior elements appear intact. No sacral fracture is seen. There is no evidence of paravertebral soft tissue hematoma. IMPRESSION: Unremarkable lumbar spine CT study. No fracture or collapse seen. <Electronically signed by Randolph Knapp > 06/14/21 [id number]
--- NOTE | 2021-06-14 12:26 | REP ---
INDICATION: fell out of truck, severe pain, + calcaneal fx. COMPARISON: None. TECHNIQUE: Helical scanning is acquired and 4 mm axial images re-formatted. Coronal and sagittal MPR images are provided. FINDINGS: Thoracic vertebral body heights are preserved. Alignment is normal on lateral radiograph. There is a minimal dextroconvex curvature on the coronal views. Pedicles and posterior elements are intact. No posterior rib fracture or posterior element fracture is appreciated. No perispinal or intraspinal hematoma is seen. Patient appears to be status post gastric bypass. The visualized lung pal are clear. IMPRESSION: Negative thoracic spine CT study. No traumatic 9 abnormality noted. <Electronically signed by Randolph Knapp > 06/14/21 [id number]
[2021-06-14] MEDS ORDERED: NORCO, ANEXSIA 5/325MG TABLET (HYDROcodone/ACETAMINOPHEN) PO ONE (12:30)
--- NOTE | 2021-06-14 13:14 | REP ---
INDICATION: better views of heel fracture. COMPARISON: None. TECHNIQUE: Two views FINDINGS: There is a markedly comminuted os calcis fracture. Additional fractures cannot be ruled out on this limited two view exam of the os calcis only. IMPRESSION: Markedly comminuted os calcis fracture as described above. Consider CT. <Electronically signed by Jeison Busby > 06/14/21 [id number]
--- NOTE | 2021-06-14 13:23 | REP ---
INDICATION: severe swelling, ecchymosis, known calcaneal fx. COMPARISON: Left os calcis 06/14/2021 TECHNIQUE: Four views. FINDINGS: There is a comminuted fracture of the calcaneus involving subtalar joint extension and several mildly displaced fragments. The calcaneocuboid articulation appears intact. The talus shows no fracture and its articulation with the calcaneus and ankle appears unremarkable. Tarsal bones and their articulations were intact metatarsals and phalanges are grossly intact. Prominent soft tissue swelling about the hindfoot and mid foot noted. IMPRESSION: Comminuted fracture of the calcaneus body with multiple intra-articular fracture extensions to the subtalar joints. The calcaneocuboid articulation was preserved. Some distraction and mild displacement of fragments. Soft tissue swelling. No other significant finding. <Electronically signed by Td Meeks > 06/14/21 [id number]
[2021-06-14 13:38] LABS: BASO % 0.5 % (0.0-1.0); EOS # 0.1 10^3/uL (0.0-0.5); EOS % 0.8 % (0.0-3.0); HEMATOCRIT 39.7 % (42.0-52.0); HEMOGLOBIN 12.7 g/dl (13.5-17.5); LYMPH # 1.2 10^3/uL (1.5-5.0); MEAN CORPUSCULAR HEMOGLOBIN 27.6 pg (27.0-33.0); MEAN CORPUSCULAR VOLUME 86.3 fl (80.0-96.0); MONO # 0.7 10^3/uL (0.0-0.8); MONO % 11.2 % (2.0-8.0); NEUTROPHILS # 4.1 10^3/uL (1.5-8.5); NEUTROPHILS % 68.3 % (36.0-66.0); PLATELET COUNT, AUTOMATED 334 10^3/uL (150-450); WHITE BLOOD COUNT 6.1 10^3/uL (4.0-10.0)
[2021-06-14 13:55] LABS: BLOOD UREA NITROGEN 8 MG/DL (7-18); CALCIUM LEVEL 8.7 MG/DL (8.5-10.1); CARBON DIOXIDE LEVEL 31 MEQ/L (21-32); CHLORIDE LEVEL 106 MEQ/L (98-107); CREATININE FOR GFR 0.65 MG/DL (0.70-1.30); GLOMERULAR FILTRATION RATE > 60.0 (>60); GLUCOSE, FASTING 95 MG/DL (70-100); POTASSIUM SERUM 4.3 MEQ/L (3.5-5.1); SODIUM LEVEL 140 MEQ/L (136-145)
[2021-06-14] MEDS ORDERED: MORPHINE 2 MG/ML 1ML VIAL (J2270) IV ONE (14:05)
[2021-06-14] MEDS ORDERED: LR 1,000 ML IV SCH (14:05)
[2021-06-14 14:32] LABS: RSV AMPLIFICATION NEGATIVE (NEGATIVE)
[2021-06-14 14:53] VITALS: BP 135/68
[2021-06-14] MEDS ORDERED: ONDANSETRON 4MG/2ML VIAL IV ONE (15:35)
--- NOTE | 2021-06-14 15:37 | REP ---
INDICATION: further evaluation calcaneal fracture. COMPARISON: CC foot and os calcis, 06/14/2021 TECHNIQUE: Axial images through ankle and foot prominent soft tissue swelling noted. Mortise joint is preserved. With coronal and sagittal bone window reconstructions. FINDINGS: There is a severely comminuted fracture of the body and anterior process of the calcaneus. Fractures of the posterior aspect of the posterior subtalar joint with rotation of that fragment along with other subtalar joint comminuted fractures. There is a fracture through the sustentaculum with displaced major fragment and nondisplaced fracture of its tip. The tarsal bones and their articulations are preserved. Talus shows no definite fracture. There is no talar dome osteochondral defect. Mortise joint preserved. Distal tibia and fibula intact. Metatarsals and phalanges grossly intact IMPRESSION: Severely comminuted fracture of the body and anterior process of the talus with multiple intra-articular fracture components of the subtalar joint articulations of the calcaneus. The ankle mortise joint is preserved. The talonavicular and calcaneocuboid joints are preserved. No other fractures. <Electronically signed by Td Meeks > 06/14/21 [id number]
== END 2021-06-14 16:01 | disposition short-term general hospital (02) ==
LOC: M ED 10:32
DX: S01.01XA Laceration without foreign body of scalp, initial encounter (principal); S92.002A Unspecified fracture of left calcaneus, initial encounter for closed fracture; S06.9X1A Unspecified intracranial injury with loss of consciousness of 30 minutes or less, initial encounter; V58.1XXA Passenger in pick-up truck or van injured in noncollision transport accident in nontraffic accident, initial encounter; Y92.099 Unspecified place in other non-institutional residence as the place of occurrence of the external cause; Y93.89 Activity, other specified; Y99.9 Unspecified external cause status; I10 Essential (primary) hypertension; Z91.89 Other specified personal risk factors, not elsewhere classified
CPT/HCPCS: 36415; 70450; 72125; 72128; 72131; 73610; 73630; 73650; 73700; 80048; 85025; 87631; 96365; 96375; 99284; J2270; J2405

== ENCOUNTER → 2021-09-15 | Outpatient (REF) | payer MEDICARE, MEDICAID ==
[2021-09-15 18:23] LABS: ALBUMIN 3.8 GM/DL (3.2-5.2); ALT/SGPT 477 U/L (12-78); BILIRUBIN,TOTAL 0.2 MG/DL (0.2-1.0); BLOOD UREA NITROGEN 15 MG/DL (7-18); CALCIUM LEVEL 9.3 MG/DL (8.5-10.1); CARBON DIOXIDE LEVEL 32 MEQ/L (21-32); CHLORIDE LEVEL 103 MEQ/L (98-107); CREATININE FOR GFR 0.85 MG/DL (0.70-1.30); GLOMERULAR FILTRATION RATE > 60.0 (>60); GLUCOSE, FASTING 84 MG/DL (70-100); POTASSIUM SERUM 4.9 MEQ/L (3.5-5.1); SODIUM LEVEL 142 MEQ/L (136-145); TOTAL PROTEIN 7.8 GM/DL (6.4-8.2)
== END ==
LOC: M SFHCPLAZ 15:40
PROVIDERS: ATTEND Family Medicine
DX: B36.0 Pityriasis versicolor (principal)